=== PATIENT | female | born 1970 | race Caucasian/White ===

== ENCOUNTER 2017-03-14 06:22 | Day surgery (SDC) | payer OTHER ==
[2017-03-11 13:39] VITALS: BMI 24.9
[2017-03-14] MEDS ORDERED: SUCCINYLCHOLINE CHLORIDE 200 MG/10 ML VIAL ONE (06:43)
[2017-03-14] MEDS ORDERED: PROPOFOL 20 ML ONE ×5 (06:43→09:16)
[2017-03-14] MEDS ORDERED: DEXAMETHASONE SOD PHOSPHATE 4 MG/1 ML VIAL ONE (06:44)
[2017-03-14] MEDS ORDERED: MIDAZOLAM HCL 2 MG/2 ML SINGLE DOSE VIAL ONE (06:44)
[2017-03-14] MEDS ORDERED: ONDANSETRON 4 MG/2 ML VIAL ONE (06:44)
[2017-03-14] MEDS ORDERED: LIDOCAINE HCL/PF 2% SDV 5ML VIAL ONE (06:44)
[2017-03-14] MEDS ORDERED: GENTAMICIN SO4 80 MG/2 ML VIAL ONE (07:16)
[2017-03-14] MEDS ORDERED: ceFAZolin SODIUM 1 GM VIAL ONE (07:16)
[2017-03-14] MEDS ORDERED: EPINEPHrine 1:1,000 1 MG/1 ML - 30ML VIAL (INJECTION) ONE (07:17)
[2017-03-14] MEDS ORDERED: LIDOCAINE HCL 1%, 10 MG/ML (20ML VIAL) ONE (07:17)
[2017-03-14] MEDS ORDERED: LIDOCAINE 1%/EPI 1:100000 (20 ML MULTI DOSE VIAL) ONE (07:17)
[2017-03-14] MEDS ORDERED: SCOPOLAMINE HYDROBROMIDE 1 PATCH PATCH.TD72 ONE (07:36)
[2017-03-14] MEDS ORDERED: BUPIVACAINE HCL/EPINEPHRINE/PF 30 ML VIAL IJ ONE (07:59)
[2017-03-14] MEDS ORDERED: PHENYLEPHRINE HCL 10 MG/1 ML SINGLE DOSE VIAL ONE (08:17)
--- NOTE | 2017-03-14 10:02 | OP ---
Operative Note - Note: Operative Date: 03/14/17 Pre-Operative Diagnosis: Aquired chest wall deformity Operation: Left breast capsulectomy with implant exchange and tissue transfer from abdomen and flanks to left and right breast. Findings: Left breast asymmetry Implants: Left breast silicone Post-Operative Diagnosis: Same as Pre-op Surgeon: Kenn Galdamez Loom Stop Checker: Shayna Blanco Anesthesiologist/SADDLE MAKER: Caitlin Alvarez Anesthesia: MAC Specimens Removed: Left breast implant and capsulectomy Estimated Blood Loss (mls): 20 Drains & Tubes with Location: none Operative Report Dictated: Yes
[2017-03-14] MEDS ORDERED: oxyCODONE HCL 5 MG TABLET PO PRN ×2 (10:03)
[2017-03-14] MEDS ORDERED: PROMETHAZINE HCL 25 MG/1 ML VIAL IVPUSH PRN (10:03)
[2017-03-14] MEDS ORDERED: ONDANSETRON 4 MG/2 ML VIAL IVPUSH PRN (10:03)
[2017-03-14] MEDS ORDERED: LACTATED RINGERS SOLUTION 1,000 ML IV SCH (10:15)
[2017-03-14] MEDS ORDERED: PROMETHAZINE HCL 25 MG/1 ML VIAL IVPUSH ONE (10:40)
[2017-03-14] MEDS ORDERED: PROMETHAZINE HCL 25 MG/1 ML VIAL ONE (10:42)
[2017-03-14] MEDS ORDERED: oxyCODONE HCL 5 MG TABLET ONE (11:44)
[2017-03-14 13:25] VITALS: PULSE 71
[2017-03-14 13:28] VITALS: BP 116/66; TEMP 98.2
--- NOTE | 2017-03-14 20:55 | OP ---
DATE OF OPERATION: 03/14/2017 SURGEON: Bharti Galdamez MD ELECTRICAL LINEMAN SURGEON: WILLIAM Moore PREOPERATIVE DIAGNOSES: 1. Bilateral acquired chest wall deformity, status post bilateral mastectomy. 2. Mechanical complication of breast implants. 3. Asymmetry of reconstructed chest wall post mastectomy. 4. Personal history of breast carcinoma. POSTOPERATIVE DIAGNOSES: 1. Bilateral acquired chest wall deformity, status post bilateral mastectomy. 2. Mechanical complication of breast implants. 3. Asymmetry of reconstructed chest wall post mastectomy. 4. Personal history of breast carcinoma. OPERATIVE PROCEDURE: 1. Right breast reconstruction utilizing other technique. 2. Left breast reconstruction utilizing other technique. 3. Capsulotomy with removal and replacement of left breast implant. 4. Tissue rearrangement and revision of left breast reconstruction. OPERATIVE INDICATION: The patient is a young woman who presents significant asymmetry of the chest wall after bilateral mastectomy and skin breakdown with multiple procedures prior. She presents with a gross asymmetry of the chest wall and mechanical complication of the left breast implant. The above procedures were required for reconstruction. The risks and benefits, surgical versus nonsurgical alternatives, as well as the material complications of this procedure were described on multiple occasions preoperatively and again today in the holding area, where she was marked in the standing position. OPERATIVE PROCEDURE IN DETAIL: The patient was taken to the operating room and after induction of general anesthesia in supine position, both arms were extended and padded, Venodyne boots were placed. The patient was prepped and draped in the usual fashion. Timeout was called, and she was given intravenous antibiotics. At this point, attention was turned to the mastectomy scars. The right breast mastectomy scar was injected with 1% local lidocaine anesthesia with 1:100,000 epinephrine, as well as the left breast mastectomy scar, which showed a significant deformed anterior lower pole of the breast with multiple scars in different directions from previous skin excisions from skin necrosis. The patient showed irregular breast shape and contour, which required this procedure. After induction of the anesthesia and topical anesthesia, attention was turned to the left breast. An incision was made down through the skin to the subcutaneous tissue in the lateral extent of the mastectomy scar for approximately 6 cm in length, through the subcutaneous tissue and down to the underlying capsule of the left breast implant. At this point, the capsule was opened, the implant was removed and sent for pathologic diagnosis. A portion of the capsule was then excised and sent for pathologic diagnosis to rule out pathology. After copious irrigation with triple antibiotic solution, a cerclage suture using number 1 V-Loc suture in a running fashion circumferentially around the breast and capsule was carried out. This was woven in and out of the breast in order to cerclage the entire breast in its more central and localized position and was tied upon itself using this les. Once this suture was in place, it was used also to tack the inframammary fold into a new position, as there was complete loss of the fold on the left side. Good shape and contour was seen at this point and attention was turned to the flanks. An incision was injected and planned in the lower abdominal wall after being made into the subcutaneous tissue and down deep and to the anterior abdominal wall. Tissue was harvested for reconstructive purposes. This tissue was incised and transferred to the back table for preparation for reconstruction in the usual fashion. Once this tissue was harvested, attention was turned back to the right breast. Incision was made in the mastectomy scar of the right breast in the inframammary fold down through skin into the deep tissue overlying the chest wall and left reconstructed breast. Tissue then from this harvest was transferred to the right breast in the superior, medial, central portions of the right breast, and extensively in the areas of the left breast over the entire central, superior, medial, and inferior portions of the left breast. A Z-plasty incision was created in the usual fashion on the anterior surface of the breast just below the nipple-areolar complex and lateral. Incisions were made down through skin, through the subcutaneous tissue. These flaps were raised and then transposed and sutured in 2 layers using 3-0 Biosyn suture on the deep skin and 5-0 plain catgut sutures in the incisions. At this point, an implant was chosen for 605 mL implant, Natrelle Inspira Cohesive style SCF 605 mL, was placed into the left breast pocket. Good shape and contour was seen at this point. The capsular wounds were closed with 2-0 PDS sutures in interrupted fashion, 3-0 Biosyn in deep dermal fashion, and 4-0 in a subcuticular fashion. Good shape and contour was then seen in the sitting position. The donor site was closed using interrupted sutures. She tolerated procedure well. She was awakened, extubated, and transferred to the recovery room in satisfactory condition. BHARTI GALDAMEZ M.D. [id number]
--- NOTE | 2017-03-19 10:35 | PATH ---
Surgical Pathology Report Patient Name: RK MIXON [facility]. Rec. #: [id number] /Age/Gender: 1970 (Age: 47) / F Account: [id number] Location: [facility] Taken: 03/14/2017 Received: 03/14/2017 Reported: 03/19/2017 Physicians: Kenn Galdamez Specimen(s) Received A: LEFT BREAST CAPSULE B: LEFT BREAST IMPLANT Clinical History History of breast cancer Final Diagnosis A. CAPSULE, LEFT BREAST, CAPSULECTOMY: FIBROUS CAPSULE. B. IMPLANT, LEFT BREAST, REMOVAL: IMPLANT, DESCRIBED (GROSS EXAMINATION ONLY). Electronically Signed Naheed Sabillon M.D. Gross Description A. Received in formalin labeled "left breast capsule," is a 2.3 x 0.5 x 0.1 cm coffman, irregular portion of fibrous capsule. The specimen is bisected and entirely submitted in one cassette. B. Received in formalin labeled "left breast implant," is a 13.5 cm in diameter x 5.5 cm in depth clear, rubbery breast implant. No soft tissue is present. No sections are submitted, gross only. DL/03/15/2017 saudi03/15/2017
== END 2017-03-14 13:00 | disposition home or self-care (01) ==
LOC: FASU 06:22
PROVIDERS: ATTEND Plastic Surgery
PROC: 0HRU0JZ Replacement of Left Breast with Synthetic Substitute, Open Approach (ICD-10-PCS; 2017-03-14)
PROC: 0HPU0JZ Removal of Synthetic Substitute from Left Breast, Open Approach (ICD-10-PCS; 2017-03-14)
PROC: 0HUU0JZ Supplement Left Breast with Synthetic Substitute, Open Approach (ICD-10-PCS; 2017-03-14)
PROC: 0JX60ZB Transfer Chest Subcutaneous Tissue and Fascia with Skin and Subcutaneous Tissue, Open Approach (ICD-10-PCS; 2017-03-14)
PROC: 0HRV07Z Replacement of Bilateral Breast with Autologous Tissue Substitute, Open Approach (ICD-10-PCS; principal; 2017-03-14 08:07)
PROC: 0HNU0ZZ Release Left Breast, Open Approach (ICD-10-PCS; 2017-03-14 08:07)
DX: M95.4 Acquired deformity of chest and rib (principal); Z90.13 Acquired absence of bilateral breasts and nipples; T85.41XA Breakdown (mechanical) of breast prosthesis and implant, initial encounter; Y83.8 Other surgical procedures as the cause of abnormal reaction of the patient, or of later complication, without mention of misadventure at the time of the procedure; Y82.8 Other medical devices associated with adverse incidents; N65.1 Disproportion of reconstructed breast; Z85.3 Personal history of malignant neoplasm of breast
CPT/HCPCS: 88300-TC; 88304-TC; 94760